=== PATIENT | male | born 2005 | race Caucasian/White ===

== ENCOUNTER 2023-06-29 15:53 | Emergency (ER) | payer BC ==
[~2023-06-29] VITALS: Ht 190.5 cm; Wt 76.6 kg
[2023-06-29 16:07] VITALS: BP 130/86; PULSE 115; RESP 20; TEMP 98.7; O2SAT 100
== END 2023-06-29 17:17 | disposition home or self-care (01) ==
LOC: EDBD 15:56 → ER 15:56
DX: S42.032A Displaced fracture of lateral end of left clavicle, initial encounter for closed fracture (principal); V00.311A Fall from snowboard, initial encounter; Y93.89 Activity, other specified; Y92.89 Other specified places as the place of occurrence of the external cause; Y99.8 Other external cause status
CPT/HCPCS: 73030; 99283; A4565

== ENCOUNTER 2024-09-22 14:14 | Emergency (ER) | payer BC ==
[~2024-09-22] VITALS: Ht 190.5 cm; Wt 70.5 kg
[2024-09-22 14:29] VITALS: BP 144/88; PULSE 74; RESP 16; TEMP 98.5; O2SAT 97
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
== END 2024-09-22 16:59 | disposition left against medical advice (07) ==
LOC: ER 14:15
DX: R41.3 Other amnesia (principal)